=== PATIENT | male | born 1980 | race Caucasian/White ===

== ENCOUNTER 2025-04-20 19:56 | Emergency (ER) | payer BC, SELFPAY ==
[2025-04-20 19:56] VITALS: BP 127/81; PULSE 72; RESP 14; TEMP 36.2; O2SAT 98; BMI 20.9
[2025-04-20 19:58] VITALS: BP 115/103; PULSE 75; RESP 18; TEMP 36.2; O2SAT 100
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
[2025-04-20 20:57] VITALS: BP 113/79; PULSE 67; RESP 18; TEMP 36.8; O2SAT 100
[2025-04-20] MEDS: Doxycycline 100 MG CAPSULE PO (20:59)
[2025-04-20] MEDS: Naproxen 500 MG Tablet PO (20:59)
== END 2025-04-20 21:05 | disposition home or self-care (01) ==
PROVIDERS: Emergency Provider Emergency Medicine; Visit Provider Emergency Medicine
DX: M70.52 Other bursitis of knee, left knee (principal); L03.116 Cellulitis of left lower limb; S80.819A Abrasion, unspecified lower leg, initial encounter; Y93.55 Activity, bike riding
CPT/HCPCS: 99282

== ENCOUNTER 2025-04-22 14:36 | Outpatient (RCR) | payer BC, SELFPAY ==
[2025-04-22 15:02] VITALS: BP 131/83; PULSE 71; RESP 16; TEMP 36.9; BMI 27.3
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
== END 2025-04-26 23:59 | disposition home or self-care (01) ==
LOC: WC 14:36
PROVIDERS: Visit Provider Physician Assistant
DX: M25.562 Pain in left knee (principal); M25.462 Effusion, left knee
CPT/HCPCS: 99213; G0463